=== PATIENT | female | born 1980 | race Caucasian/White ===

== ENCOUNTER 2023-02-01 09:53 | Emergency (ER) | payer OTHER ==
--- OUTSIDE RECORDS SUMMARY | 2023-02-01 09:56 | XMS REPORT | Continuity of Care Document ---
:1980 Author Organization [facility] t Address [address] [place] [id number] Care Team Providers Name Role Phone KOSTA VILLATORO Attending Clinician Unavailable KOSTA VILLATORO Admitting Clinician Unavailable Problems This patient has no known problems. Allergies, Adverse Reactions, Alerts Allergy Allergy Status Severity Reaction(s) Onset Inactive Treating Comm ents Source Name Type Date Date Clinician Bactrim DA Active Unknown [facility] ([facility]) naproxen DA Active Unknown [facility] ([facility] V/SA) Medications This patient has no known medications. Vital Signs Vital Name Observation Time Observation Value Comments Source Height 2020-03-30 19:46:00 162.56 CM Weight 2020-03-30 19:46:00 70.3 KG Procedures This patient has no known procedures. Results Test Description Test Time Test Comments Results Result [facility] e Comments XR CHEST AP/PA 1 2020-03-21 EXAMINATION: XR CHEST [facility] VIEW 0 AP/PA 1 22:00:32 VIEWINDICATION: [id number]: DyspneaCOMPARISON: NoneFINDINGS:TUBES and LINES: None.LUNGS: Normal lung volumes. Lungs are clear. No consolidations.PLEURA : No pleural effusion or pneumothorax.HEART AND MEDIASTINUM: The cardiomediastinal silhouette is unremarkable.BONES AND SOFT TISSUES: No acute osseous lesion. Soft tissues areunremarkable.UPPER ABDOMEN: No free air under the diaphragm.IMPRESSION: No acute thoracic radiographic abnormality.This final report was electronically signed by Dr Omi Knott DO 03/30/20209:54 PMDictated By: OMI KNOTTDate: 03/30/2020 21:54 CT HEAD W/O 2020-03-21 CT HEAD W/O [facility] ON CONTRAST 0 CONTRASTOrdering 21:23:49 Provider: KOSTA BACKENHistory: [id number]: First generalized onset seizureComparison studies: None.Technique:Noncon trast axial scans were obtained from skull base to the vertex. Coronaland sagittal reconstructions obtained from the axial data. One or more of thefollowing dose reduction techniques were used: Automated exposure control,adjustment of the mA and/or kV according to patient size, and/or utilization ofiterative reconstruction technique.DISCUSSION: Scalp/Skull: Unremarkable.Brain sulci: Appropriate for patient's age.Ventricles: Normal in size and configuration. No hydrocephalus.Extra-a xial spaces: No masses or fluid collections.Parenchym a:No abnormal densities.No masses, hemorrhage, or large vascular territory acute infarct.Dural sinuses: No abnormal densities.Sellar/Supr asellar region: Intact.Skull base: Intact.Incidental findings: None.IMPRESSION:No intracranial abnormalities.This final report was electronically signed by Dr Poli rOtiz MD 03/30/20209:17 PMDictated By: POLI ORTIZDate: 03/30/2020 21:17 DRUG SCREEN MED 2020-03-30 21:06:00 Test Item Value Reference Range Interpretation Comme nts FT (test code = AMPHET) Negative (qualifier value) FT (test code = FCO) Negative (qualifier value) FT (test code = BENZO) Negative (qualifier value) FT (test code = SARAY) Negative (qualifier value) FT (test code = MTD) Negative (qualifier value) FT (test code = OPIAT) Negative (qualifier value) FT (test code = PCP) Negative (qualifier value) The following table provides an interpretive gu amairani for the Drugs of Abuse ran on the Siemens Steger a nalyzer listed there in: Amphe tamines < 1000 ng/ml = Negativ e Barbituates < 200 ng/ml = Neg ative Benzodiazapines < 200 ngml = Negative Cocain e < 300 ng/ml = Negative Methad one < 300 ng/ml = Negative Opia te < 300 ng/ml = Negative PCP < 25 ng/ml = Negative THC < 50 ng/ml = Negative Result s equal to or greater than th e above cut-off values = Presum ptive Positive. Confirmation of Presumptive Positive result s are available upon request. FT (test code = THC) Negative (qualifier value) [facility] [id number] 21:06:00 Test Item Value Reference Range Interpretation Comments Troponin-I (test <0.015 ng/ml 0.000-0.034 N The [address] Pe rcentile URL code = TROP) is 0.045 ng/mL for the Siemens Steger T roponin I. The Joint [employer] pean Society of Cardiology/[facility] College of Card iology (ESC/ACC) and [facility] natasha Standards of La boratory Practices (NACB ) recommends that the diagnosis of AM I includes the presence of clinical history suggest juan carlos of Acute Coronary Syndrome (ACS) and a max imum concentration o f cardiac troponin exceed ing the 99th percentile of a normal referenc e population [upp er reference limit (URL)] on at least one oc casion during the firs t 24 hours after the clini tr event. [facility] HospitalTS (Ultra Sensitive)2020-03-30 21:06:00 Test Item Value Reference Range Interpretation Comments TSH (test code = TSH) 3.01 mIU/L 0.47-4.68 [facility] HospitalCMP2020-05-10 21:06:00 Test Item Value Reference Range Interpretation Comments Glucose (test code 91 mg/dl 75-110 = GLU) BUN (test code = 17.0 mg/dl 6.0-17.0 BUN) Creatinine (test 0.8 mg/dl 0.4-1.2 code = CREA) Sodium (test code = 137 mmol/l 137-145 NA) Potassium (test 3.2 mmol/l 3.5-5.0 L code = K) Chloride (test code 103 mmol/l 98-107 = CL) CO2 (test code = 27 mmol/l 22-30 CO2) Calcium (test code 9.5 mg/dl 8.4-10.2 = CALC) T Protein (test 7.4 gm/dl 5.1-8.7 code = TP) Albumin (test code 4.2 gm/dl 3.5-4.6 = ALB) A/G Ratio (test 1.3 % 1.1-2.2 code = AGRAT) AST (SGOT) (test 19 U/L 11-36 code = AST) ALT (SGPT) (test 32 U/L 11-40 code = ALT) Alkaline Phos (test 46 U/L 47-114 L code = ALKP) Total Bilirubin 0.6 mg/dl 0.2-1.2 (test code = TBIL) Globulin (test code 3.2 gm/dl 2.3-3.5 = GLOBU) Calcium, Corrected 9.3 mg/dl 8.4-10.2 Various f ormulas exist (test code = for corrected s immanuel CALCCORR) calcium results , each yielding differ ent values. This co rrected result was base d on the formula: Co rrected Calcium = Serum Calcium + [0.8 * ( 4 - SerumAlbumin)] EGFR if >60 Icelandic (test code mL/min/1.73m\\ = EGFRAA) S\\2 EGFR if Non- >60 Estimate d Glomerular Icelandic (test code mL/min/1.73m\\ Filtrat ion Rate (eGFR) = EGFRNA) S\\2 Reference Inter vals Decision Points for 18 years and older and average body ma ss: >= 60 Does not exc lude kidney disease. 30 - 59 Suggests mod erate chronic kidney disease and indicates t he need for further investigation including asses sment of proteinuria and cardiovascular factors. < 30 U sually indicates a nee d for referral for assessment and management of c hronic kidney failure. [facility] HospitalMAGNESIUM2020-05-10 20:53:00 Test Item Value Reference Range Interpretation Comments Magnesium (test code = MG) 2.2 mg/dl 1.6-2.3 [facility] HospitalURINALYSIS WITH [id number] 20:51:00 Test Item Value Reference Range Interpretation Comments Color (test code = UCOLR) Yellow Clarity (test code = UCLAR) Clear Glucose (test code = UGLUC) NEGATIVE NEGATIVE N Bilirubin (test code = UBILI) NEGATIVE NEGATIVE N Ketones (test code = UKET) NEGATIVE NEGATIVE N Specific [place] (test code = 1.010 1.005-1.030 A USPGR) Blood (test code = UBLD) NEGATIVE NEGATIVE N PH (test code = UPH) 7.0 4.5-8.0 A Protein (test code = UPROT) NEGATIVE NEGATIVE N Urobilinogen (test code = U UROB) 0.2 >0.2 N Nitrite (test code = UNITR) NEGATIVE NEGATIVE N Leukocyte Esterase (test code = NEGATIVE NEGATIVE N ULEUK) WBC (test code = WBCUR) 0-2 0-5 A RBC (test code = RBCUR) None Seen 0-5 A Epithial Cells (test code = U EPI) 0-5 0-10 A Mucous (test code = UMUC) Small None Seen A Bacteria (test code = UBACT) 2+ None Seen,Trace A [facility] HospitalPREGNANCY TEST, Urine [id number] 20:51:00 Test Item Value Reference Range Interpretation Comments (Urine) (test code = Negative PREGU) [facility] WITH AUTO [id number] 20:44:00 Test Item Value Reference Range Interpretation Comments WBC (test code = 8.74 10\\S\\3/ul 4.80-10.80 WBC) RBC (test code = 4.76 10\\S\\6/ul 4.20-5.40 RBC) Hemoglobin (test 14.8 gm/dl 12.0-14.0 H code = HGB) Hematocrit (test 42.4 % 37.0-47.0 code = HCT) MCV (test code = 89.1 fL 81.0-99.0 MCV) MCH (test code = 31.1 pg 27.0-31.0 H MCH) MCHC (test code = 34.9 gm/dl 33.0-37.0 MCHC) RDW (test code = 12.6 % 11.5-14.5 RDWVC) Platelet (test code 283 10\\S\\3/ul 130-400 = PLT) MPV (test code = 10.2 fL 7.4-10.4 A "NOT MEASUR ED" MPV) RESULTS ARE DIS PLAYED WHEN THE INSTRU MENT HAS A SUPPRESSE D OR UNREPORTABLE RE SULT. THIS WILL MOST OFTEN HAPPEN WITH THE MPV WHEN THERE IS A N ABNORMAL PLATEL ET DISTRIBUTION DU E TO A CRITICAL LOW VA LUE OR PLATELET CLUMPI NG. THE RDW MAY BE SUPPRESSED IF T HERE ARE MULTIPLE PE AKS PRESENT ON THE RBC HISTOGRAM. IN T HIS CASE, A MANUAL REVIEW OF THE SLIDE WI LL BE PERFORMED, AND RBC MORPHOLOGY WILL BE NOTED ON THE RE PORT. NE% (test code = 59.5 % 42.0-75.0 NE) LY% (test code = 30.9 % 13.0-42.0 LY) MO% (test code = 7.3 % 4.0-14.0 MO) EO% (test code = 1.5 % 1.0-5.0 EO) BA% (test code = 0.7 % 0.0-3.0 BA) IG% (test code = 0.1 % 0.0-0.4 IG%) [facility]
[2023-02-01] MEDS ORDERED: KETOROLAC 30 MG/ML INJ ONE (10:31)
--- NOTE | 2023-02-01 12:34 | RAD REPORT ---
EXAM DESCRIPTION: RAD - Humerus Left - 02/01/2023 11:29 am CLINICAL HISTORY: PAIN COMPARISON: No comparisons FINDINGS: No acute fracture or dislocation.
--- NOTE | 2023-02-01 12:34 | RAD REPORT ---
EXAM DESCRIPTION: RAD - Forearm Left - 02/01/2023 11:29 am CLINICAL HISTORY: PAIN COMPARISON: No comparisons FINDINGS: No acute fracture or dislocation seen.
--- NOTE | 2023-02-01 12:43 | ER ---
Nurse's Notes [facility] Name: Sasha Montoya Age: 42 yrs Sex: Female : 1980 Arrival Date: 02/01/2023 Time: 09:57 Bed 19 Private MD: Diagnosis: Contusion of left forearm Presentation: 02/01 10:00 Method Of Arrival: Ambulatory hb 10:00 Acuity: MIKAL 3 hb 10:00 Chief complaint: Left arm got caught between cow and chute 2 hours ago, now c/o severe hb left arm pain and numbness from elbow to hand. Coronavirus screen: At this time, the client does not indicate any symptoms associated with coronavirus-19. Ebola Screen: No symptoms or risks identified at this time. Initial Sepsis Screen: Does the patient meet any 2 criteria? No. Patient's initial sepsis screen is negative. Does the patient have a suspected source of infection? No. Patient's initial sepsis screen is negative. Risk Assessment: Do you want to hurt yourself or someone else? Patient reports no desire to harm self or others. Onset of symptoms was February 01, 2023. Triage Assessment: 10:15 General: Appears uncomfortable, Behavior is cooperative, appropriate for age, anxious. bp Pain: Complains of pain in left arm. EENT: No deficits noted. Neuro: No deficits noted. Cardiovascular: No deficits noted. Respiratory: No deficits noted. GI: No signs and/or symptoms were reported involving the gastrointestinal system. : No signs and/or symptoms were reported regarding the genitourinary system. Derm: No deficits noted. Musculoskeletal: No deficits noted. Injury Description: Bruise sustained to left arm. Historical: - Allergies: 10:03 Sulfa (Sulfonamide Antibiotics); hb 10:03 Naproxen; hb - PMHx: 10:08 Hypertension; hb - Immunization history:: Adult Immunizations up to date. - Social history:: Smoking status: Patient denies any tobacco usage or history of. Screenin:15 [facility] ED Fall Risk Assessment (Adult) History of falling in the last 3 months, bp including since admission No falls in past 3 months (0 pts). Abuse screen: Denies threats or abuse. Denies injuries from another. Nutritional screening: No deficits noted. Tuberculosis screening: No symptoms or risk factors identified. Assessment: 10:15 General: SEE TRIAGE NOTE. bp Vital Signs: 10:00 BP 143 / 109; Pulse 87; Resp 16; Temp 97.8; Pulse Ox 100% on R/A; Weight 68.04 kg; hb Height 5 ft. 4 in. ; Pain 10/10; 12:20 BP 129 / 82; Pulse 87; Resp 16; Pulse Ox 98% ; bp 10:00 Body Mass Index 25.75 (68.04 kg, 162.56 cm) hb 10:00 Pain Scale: Adult hb ED Course: 09:57 Patient arrived in ED. am2 09:59 Darleen Leija [facility]NP-C [facility]. kb 09:59 Rolando Chance MD is Attending Physician. kb 10:03 Triage completed. hb 10:03 Arm band placed on. hb 10:15 Patient has correct armband on for positive identification. Bed in low position. Call bp light in reach. Side rails up X2. 10:30 Kleber Reynoso, RN is Primary Nurse. bp 11:31 Humerus Left XRAY In Process Unspecified. EDMS 11:31 Forearm Left XRAY In Process Unspecified. EDMS Administered Medications: 10:31 Drug: Ketorolac IM 30 mg Route: IM; Site: right deltoid; bp 12:12 Follow up: Response: No adverse reaction bp Medication: 10:15 VIS not applicable for this client. bp Outcome: 12:43 Discharge ordered by . kb Signatures: Dispatcher [employer] EDMS Darleen Leija FNP-C FNP-Ckb Baxter, Heather, RN RN Jazmyn Delarosa am2 Kleber Reynoso, RN RN bp Corrections: (The following items were deleted from the chart) 10:17 10:00 Chief complaint: Left arm got caught between cow and chute 2 hours ago, not c/o hb severe left arm pain and numbness from elbow to hand. hb
--- NOTE | 2023-02-01 12:44 | EDPHYS ---
Physician Documentation [facility] Name: Sasha Montoya Age: 42 yrs Sex: Female : 1980 Arrival Date: 02/01/2023 Time: 09:57 Bed 19 Private MD: ED Physician Rolando Chance Historical: - Allergies: 02/01 10:03 Sulfa (Sulfonamide Antibiotics); hb 10:03 Naproxen; hb - PMHx: 10:08 Hypertension; hb - Immunization history:: Adult Immunizations up to date. - Social history:: Smoking status: Patient denies any tobacco usage or history of. Vital Signs: 10:00 BP 143 / 109; Pulse 87; Resp 16; Temp 97.8; Pulse Ox 100% on R/A; Weight 68.04 kg; hb Height 5 ft. 4 in. ; Pain 10/10; 12:20 BP 129 / 82; Pulse 87; Resp 16; Pulse Ox 98% ; bp 10:00 Body Mass Index 25.75 (68.04 kg, 162.56 cm) hb 10:00 Pain Scale: Adult hb MDM: 09:59 Patient medically screened. kb 02/01 10:03 Order name: Humerus Left XRAY; Complete Time: 12:35 kb 02/01 10:03 Order name: Forearm Left XRAY; Complete Time: 12:35 kb Administered Medications: 10:31 Drug: Ketorolac IM 30 mg Route: IM; Site: right deltoid; bp 12:12 Follow up: Response: No adverse reaction bp Disposition Summary: 02/01/23 12:43 Discharge Ordered Location: Home kb Condition: Stable kb Diagnosis - Contusion of left forearm kb Followup: kb - With: Emergency Department - When: As needed - Reason: Worsening of condition Followup: kb - With: Private Physician - When: 2 - 3 days - Reason: Recheck today's complaints, Continuance of care, Re-evaluation by your physician Forms: - Medication Reconciliation Form kb - Thank You Letter kb - Antibiotic Education kb - Prescription Opioid Use kb Signatures: Dispatcher [employer] EDDarleen Meade FNP-C FNP-Candy Gonzalez, RN RN Kleber Reynoso, RN RN bp
[2023-02-01 13:40] VITALS: TEMP 97.8
[2023-02-01 13:41] VITALS: BP 129/82; O2SAT 98
== END 2023-02-01 13:06 | disposition home or self-care (01) ==
LOC: ER 09:53
DX: S50.12XA Contusion of left forearm, initial encounter (principal)
CPT/HCPCS: 96372; 99283